=== PATIENT | male | born 1990 | race African-American/Black ===

== ENCOUNTER 2017-02-13 13:18 | Emergency (ER) | payer SELFPAY ==
[2017-02-13 13:51] VITALS: BP 115/59
--- NOTE | 2017-02-13 13:58 | ER Document Report ---
ED Medical Screen (RME) - General Stated Complaint: POSSIBLE BLOOD IN STOOL Time seen by provider: 13:56 Mode of Arrival: Ambulatory Information source: Patient Notes: 26-year-old male presents to ED for swollen lymph nodes to his right axilla and groin for 3 days. He states he's also had some blood with his stools off and on for 2 months with intermittent diarrhea. States he's had overall feeling in his stomach like he hasn't eaten for about 2 months. Denies nausea or vomiting. States he has not been to a doctor in this time.. I have greeted and performed a rapid initial assessment of this patient. A comprehensive ED assessment and evaluation of the patient, analysis of test results and completion of medical decision making process will be conducted by an additional ED providers. TRAVEL OUTSIDE OF THE [place] IN LAST 30 DAYS: No - Related Data Allergies/Adverse Reactions: No Known Allergies Allergy (Verified 10/14/16 08:40) Past Medical History - Immunizations Hx Diphtheria, Pertussis, Tetanus Vaccination: Yes - unknown Physical Exam - Vital signs Vitals: Temp Pulse Resp BP Pulse Ox 98.3 F 56 L 14 115/59 L 97 02/13/17 13:50 02/13/17 13:50 02/13/17 13:50 02/13/17 13:50 02/13/17 13:50 Course - Vital Signs Vital signs: Temp Pulse Resp BP Pulse Ox 98.3 F 56 L 14 115/59 L 97 02/13/17 13:50 02/13/17 13:50 02/13/17 13:50 02/13/17 13:50 02/13/17 13:50
== END 2017-02-13 16:40 | disposition left against medical advice (07) ==
LOC: ER 13:18
DX: Z53.9 Procedure and treatment not carried out, unspecified reason (principal); R19.5 Other fecal abnormalities; R59.9 Enlarged lymph nodes, unspecified
CPT/HCPCS: 99281

== ENCOUNTER 2017-05-12 18:57 | Emergency (ER) | payer SELFPAY ==
--- NOTE | 2017-05-12 23:25 | ER Document Report ---
ED General - General Chief Complaint: Bloody Stools Stated Complaint: POSSIBLE BLOODY STOOL Time Seen by Provider: 05/12/17 22:57 Notes: Patient is a 26-year-old male without past medical history who presents with several months of constipation, intermittent rectal bleeding with hard stools and intermittent abdominal discomfort. Denies any abdominal pain at the time of my assessment states that he intermittently has a diffuse, mild, abdominal cramping. Nothing improves or worsens the symptoms. He has not tried anything to assist with constipation. Denies any significant rectal bleeding. No hematemesis. He has not seen his primary care doctor regarding today's concerns. No history of bleeding diatheses. TRAVEL OUTSIDE OF THE [place] IN LAST 30 DAYS: No - Related Data Allergies/Adverse Reactions: No Known Allergies Allergy (Verified 02/13/17 13:58) Past Medical History - General Information source: Patient - Social History Smoking Status: Never Smoker Chew tobacco use (# tins/day): No Frequency of alcohol use: None Drug Abuse: None Lives with: Spouse/Significant other Family History: Reviewed & Not Pertinent Patient has suicidal ideation: No Patient has homicidal ideation: No Renal/ Medical History: Denies: Hx Peritoneal Dialysis Surgical Hx: Negative - Immunizations Hx Diphtheria, Pertussis, Tetanus Vaccination: Yes - unknown Review of Systems - Review of Systems Notes: Constitutional: Negative for fever. HENT: Negative for sore throat. Eyes: Negative for visual changes. Cardiovascular: Negative for chest pain. Respiratory: Negative for shortness of breath. Gastrointestinal: Positive for abdominal pain and constipation Genitourinary: Negative for dysuria. Musculoskeletal: Negative for back pain. Skin: Negative for rash. Neurological: Negative for headaches, weakness or numbness. 10 point ROS negative except as marked above and in HPI. Physical Exam - Vital signs Vitals: Temp Pulse Resp BP Pulse Ox 98.3 F 71 16 126/66 H 99 05/12/17 20:11 05/12/17 20:11 05/12/17 20:11 05/12/17 20:11 05/12/17 20:11 Interpretation: Normal Notes: PHYSICAL EXAMINATION: GENERAL: Well-appearing, well-nourished and in no acute distress. HEAD: Atraumatic, normocephalic. EYES: Pupils equal round and reactive to light, extraocular movements intact, sclera anicteric, conjunctiva are normal. ENT: nares patent, oropharynx clear without exudates. Moist mucous membranes. NECK: Normal range of motion, supple without lymphadenopathy LUNGS: Breath sounds clear to auscultation bilaterally and equal. No wheezes rales or rhonchi. HEART: Regular rate and rhythm without murmurs ABDOMEN: Soft, nontender, normoactive bowel sounds. No guarding, no rebound. No masses appreciated. EXTREMITIES: Normal range of motion, no pitting or edema. No cyanosis. NEUROLOGICAL: No focal neurological deficits. Moves all extremities spontaneously and on command. PSYCH: Normal mood, normal affect. SKIN: Warm, Dry, normal turgor, no rashes or lesions noted. Course - Re-evaluation Re-evalutation: 05/12/17 23:21 Patient presents with concerns of constipation, intermittent abdominal pain and blood around his stools. He denies any abdominal pain at the time of my assessment. Vitals are within normal limits. No focal abdominal tenderness on examination. Patient denies any significant amount of bleeding and notes that the symptoms have been present for the past 2 months. States he is having a regular bowel movements going approximately 2-3 times a week and he does have to strain extensively to have a bowel movement, consistent with a history of constipation. Patient did decline a rectal examination. I did mention to the patient that this would allow me to assess for anal fissures, a rectal mass, and for internal and external hemorrhoids. He declined stating the only concern that he had and the reason that he came to the emergency department denies that he was worried about the possibility of colon cancer. He has no family history of colon cancer on either his mother or father's side. I reviewed with the patient the colon cancer screening guidelines for reassurance and he states that this was quite helpful. He has not had any weight loss, is otherwise extremely well in appearance and I do not suspect an acute colonic cancer at this time. I recommended MiraLAX therapy at home. At this time will discharge with return precautions and follow-up recommendations. Verbal discharge instructions given a the bedside and opportunity for questions given. Medication warnings reviewed. Patient is in agreement with this plan and has verbalized understanding of return precautions and the need for primary care follow-up in the next 24-72 hours. - Vital Signs Vital signs: Temp Pulse Resp BP Pulse Ox 98 F 55 L 18 119/62 97 06/17/17 00:53 05/13/17 00:53 05/13/17 00:53 05/13/17 00:53 05/13/17 00:53 Discharge - Discharge Clinical Impression: Rectal bleeding Constipation Qualifiers: Constipation type: unspecified constipation type Qualified Code(s): K59.00 - Constipation, unspecified Condition: Good Disposition: HOME, SELF-CARE Additional Instructions: For your constipation take 1-2 capfuls of MiraLAX every day until your stools the consistency of soft serve ice cream. You can also consider getting a squatty potty to help with having BMs. Return if you begin to have large quantities of blood in your stool, worsening or persistent abdominal pain, vomiting, fever, or any other symptoms that are worrisome to you.
[2017-05-12] MEDS ORDERED: POLYETHYLENE GLYCOL 3350 POWDER 17 GM/1 PACKET PO ONE (23:26)
[2017-05-13 00:56] VITALS: BP 119/62
== END 2017-05-12 23:30 | disposition home or self-care (01) ==
LOC: ER 18:57
DX: K62.5 Hemorrhage of anus and rectum (principal); K59.00 Constipation, unspecified
CPT/HCPCS: 99283

== ENCOUNTER 2017-07-05 19:54 | Emergency (ER) | payer SELFPAY ==
--- NOTE | 2017-07-05 20:56 | ER Document Report ---
ED GI/ - General Chief Complaint: STD Exposure Stated Complaint: STD CHECK Time Seen by Provider: 07/05/17 20:45 Mode of Arrival: Ambulatory Information source: Patient Notes: 27-year-old male presents to ED for complaint of a sky green discharge from his penis. He denies any pain discomfort with urination but states he has been having unprotected sex. TRAVEL OUTSIDE OF THE [place] IN LAST 30 DAYS: No - HPI Patient complains to provider of: Other - penile discharge Onset: Other - "several days" Timing/Duration: Persistent Quality of pain: No pain Severity in ED: None Pain Level: Denies Location: Other - penile discharge Sexual history: Unprotected intercourse Associated symptoms: Penile discharge Exacerbated by: Denies Relieved by: Denies Similar symptoms previously: No Recently seen / treated by doctor: No - Related Data Allergies/Adverse Reactions: No Known Allergies Allergy (Verified 07/05/17 20:06) Home Medications: Current Home Medications No Home Medications 07/05/17 [History] Past Medical History - General Information source: Patient - Social History Smoking Status: Current Every Day Smoker Cigarette use (# per day): Yes - 3 cig a day Chew tobacco use (# tins/day): No Smoking Education Provided: Yes - less than 2 min Frequency of alcohol use: Social Drug Abuse: Marijuana Lives with: Alone Family History: CVA Patient has suicidal ideation: No Patient has homicidal ideation: No - Past Medical History Cardiac Medical History: Reports: None Pulmonary Medical History: Reports: None EENT Medical History: Reports: None Neurological Medical History: Reports: None Endocrine Medical History: Reports: None Renal/ Medical History: Reports: None Malignancy Medical History: Reports None GI Medical History: Reports: None Musculoskeltal Medical History: Reports None Skin Medical History: Reports None Psychiatric Medical History: Reports: None Traumatic Medical History: Reports: None Infectious Medical History: Reports: None Surgical Hx: Negative Past Surgical History: Reports: None - Immunizations Hx Diphtheria, Pertussis, Tetanus Vaccination: Yes - unknown Review of Systems - Review of Systems Constitutional: No symptoms reported EENT: No symptoms reported Cardiovascular: No symptoms reported Respiratory: No symptoms reported Gastrointestinal: No symptoms reported Genitourinary: No symptoms reported Male Genitourinary: Penile discharge Musculoskeletal: No symptoms reported Skin: No symptoms reported Hematologic/Lymphatic: No symptoms reported Neurological/Psychological: No symptoms reported -: Yes All other systems reviewed and negative Physical Exam - Vital signs Vitals: Temp Pulse Resp BP Pulse Ox 98.4 F 80 15 134/86 H 96 07/05/17 20:06 07/05/17 20:06 07/05/17 20:06 07/05/17 20:06 07/05/17 20:06 Interpretation: Normal - General General appearance: Appears well, Alert - HEENT Head: Normocephalic, Atraumatic Eyes: Normal Pupils: PERRL - Respiratory Respiratory status: No respiratory distress Chest status: Nontender Breath sounds: Normal Chest palpation: Normal - Cardiovascular Rhythm: Regular Heart sounds: Normal auscultation Murmur: No - Abdominal Inspection: Normal Distension: No distension Bowel sounds: Normal Tenderness: Nontender Organomegaly: No organomegaly - Genitourinary Tenderness: Nontender Notes: green penile discharge - Back Back: Normal, Nontender - Extremities General upper extremity: Normal inspection, Nontender, Normal color, Normal ROM , Normal temperature General lower extremity: Normal inspection, Nontender, Normal color, Normal ROM , Normal temperature, Normal weight bearing. No: Yuliet's sign - Neurological Neuro grossly intact: Yes Cognition: Normal Orientation: AAOx4 [place] Coma Scale Eye Opening: Spontaneous [place] Coma Scale Verbal: Oriented [place] Coma Scale Motor: Obeys Commands [place] Coma Scale Total: 15 Speech: Normal Motor strength normal: LUE, RUE, LLE, RLE Sensory: Normal - Psychological Associated symptoms: Normal affect, Normal mood - Skin Skin Temperature: Warm Skin Moisture: Dry Skin Color: Normal Course - Re-evaluation Re-evalutation: 07/05/17 21:46 Patient treated with azithromycin and Rocephin and discharged home to call later tonight and ask for the results of his GC and chlamydia. Patient given instructions on safe sex. - Vital Signs Vital signs: Temp Pulse Resp BP Pulse Ox 98.4 F 80 15 134/86 H 96 07/05/17 20:06 07/05/17 20:06 07/05/17 20:06 07/05/17 20:06 07/05/17 20:06 - Laboratory Laboratory results interpreted by me: 07/05/17 20:35 Urine Ascorbic Acid 20 H Discharge - Discharge Clinical Impression: Urethritis Condition: Stable Disposition: HOME, SELF-CARE Instructions: Family Physicians / Practices Additional Instructions: Urethritis You have urethritis, an infection of the urethra. The usual symptoms are pain on urination and discharge. The infection is often caused by gonorrhea or chlamydia. Treatment is antibiotics. In addition, any sexual contacts should be evaluated by a physician as soon as possible. As this infection can be transmitted sexually, refrain from sexual activity until the infection is confirmed as healed by your physician. If gonorrhea or chlamydia is found on culture, the health department must be notified. Call the doctor at once if you develop difficulty passing your urine, high fever, rash, joint swelling, or other new symptoms. Rocephin You have been given an injection of an antibiotic called Rocephin ( ceftriaxone). Sometimes the injection must be combined with antibiotic pills. For some infections, such as an uncomplicated ear infection, Rocephin provides all the antibiotic that's needed. The antibiotic will be in your body for about two days. For serious infections, we usually repeat doses of Rocephin daily. Side effects are very unusual following a shot. Women may develop vaginal yeast infections, and babies can get yeast (thrush) in the mouth following the use of antibiotics. Contact your physician if you have symptoms with this medication. Allergy to this antibiotic can result in hives, wheezing, faintness, or itching. If symptoms of allergy occur, call the doctor at once. Azithromycin Azithromycin (Zithromax) is a broad spectrum antibiotic in the same class as erythromycin. It can treat a variety of bacterial infections, but is most frequently used for respiratory infections. Azithromycin is extremely long-lasting. It accumulates in body tissues and continues to kill bacteria for many days. In order to improve absorption, Azithromycin should be taken at least one hour before or two hours after a meal. It does not have the same strong tendency to upset the stomach as erythromycin and is usually very well tolerated. Patients who have had a rash or other true allergic reactions to erythromycin should not take this medication. Call if you develop gastrointestinal distress, severe diarrhea, rash, hives, itching, or shortness of breath. Call [phone] and speak with Korey for the results of your gonorrhea and chlamydia test. FOLLOW-UP CARE: If you have been referred to a physician for follow-up care, call the physician s office for an appointment as you were instructed or within the next two days. If you experience worsening or a significant change in your symptoms, notify the physician immediately or return to the Emergency Department at any time for re-evaluation. Forms: Elevated Blood Pressure, Smoking Cessation Education
[2017-07-05 21:15] LABS: APPEARANCE,URINE CLEAR; BILIRUBIN,URINE NEGATIVE (NEGATIVE); GLUCOSE, URINE NEGATIVE (NEGATIVE); KETONES,URINE NEGATIVE (NEGATIVE); LEUKOCYTE ESTERASE,URINE NEGATIVE (NEGATIVE); NITRITE,URINE NEGATIVE (NEGATIVE); PROTEIN,URINE NEGATIVE (NEGATIVE); URINE SPECIFIC GRAVITY 1.016; UROBILINOGEN,URINE NEGATIVE mg/dL (<2.0)
[2017-07-05] MEDS ORDERED: CEFTRIAXONE INJ 250 MG VIAL IM ONE (21:19)
[2017-07-05] MEDS ORDERED: AZITHROMYCIN 250 MG TABLET PO ONE (21:19)
[2017-07-05] MEDS ORDERED: LIDOCAINE 1% INJ-PF (10 MG/ML) 30 ML SDV INJ ONE (21:19)
[2017-07-05 22:24] LABS: CHLAM PCR NOT DETECTED (NOT DETECT)
[2017-07-05 23:18] VITALS: BP 125/69
== END 2017-07-05 22:15 | disposition home or self-care (01) ==
LOC: ER 19:54
DX: A54.01 Gonococcal cystitis and urethritis, unspecified (principal); F17.210 Nicotine dependence, cigarettes, uncomplicated; Z71.6 Tobacco abuse counseling
CPT/HCPCS: 99283; 96372; 81001; 87491; 87591; J3490; J0696

== ENCOUNTER 2019-06-18 22:59 | Emergency (ER) | payer SELFPAY ==
--- NOTE | 2019-06-18 23:53 | ER Document Report ---
ED General - General Chief Complaint: Swallowed Bleach Stated Complaint: POSSIBLE BLEACH POISONING Time Seen by Provider: 06/18/19 23:49 Notes: Patient is a 29 year old male that comes to the Emergency Department for chief complaint of accidental ingestion of bleach. He states there was a jug that was full of water and added bleach for cleaning it out, he didn't realize and he poured himself a drink of the mixed water, and he took a swallow. He states he threw up twice and his throat is burning. He denies any symptoms otherwise. He denies any other complaints. He denies any daily medications or diagnosed medical problems. TRAVEL OUTSIDE OF THE [place] IN LAST 30 DAYS: No - Related Data Allergies/Adverse Reactions: shrimp Allergy (Verified 06/18/19 23:06) Past Medical History - General Information source: Patient - Social History Smoking Status: Never Smoker Drug Abuse: None Lives with: Family Family History: CVA Renal/ Medical History: Denies: Hx Peritoneal Dialysis Surgical Hx: Negative - Immunizations Immunizations up to date: Yes Hx Diphtheria, Pertussis, Tetanus Vaccination: Yes - unknown Review of Systems - Review of Systems Constitutional: No symptoms reported EENT: See HPI Cardiovascular: No symptoms reported Respiratory: No symptoms reported Gastrointestinal: See HPI Genitourinary: No symptoms reported Male Genitourinary: No symptoms reported Musculoskeletal: No symptoms reported Skin: No symptoms reported Hematologic/Lymphatic: No symptoms reported Neurological/Psychological: No symptoms reported Physical Exam - Vital signs Vitals: Temp Pulse Resp BP Pulse Ox 98.2 F 69 12 143/80 H 97 06/18/19 23:13 06/18/19 23:13 06/18/19 23:13 06/18/19 23:13 06/18/19 23:13 - Notes Notes: GENERAL: Alert, interacts well. No acute distress. HEAD: Normocephalic, atraumatic. EYES: Pupils equal, round, and reactive to light. Extraocular movements intact. ENT: Oral mucosa moist, tongue midline. Oropharynx unremarkable. No swelling or abnormal erythema noted. Airway patent. Nares patent, no nasal septal hematoma, TM's intact. NECK: Full range of motion. Supple. Trachea midline. LUNGS: Clear to auscultation bilaterally, no wheezes, rales, or rhonchi. No respiratory distress. HEART: Regular rate and rhythm. No murmur ABDOMEN: Soft, non-tender. Non-distended. GENITOURINARY: Deferred EXTREMITIES: Moves all 4 extremities spontaneously. No edema, normal radial and dorsalis pedis pulses bilaterally. No cyanosis. BACK: no cervical, thoracic, lumbar midline tenderness. No saddle anesthesia, normal distal neurovascular exam. Moves all extremities in full range of motion. NEUROLOGICAL: Alert and oriented x3. Normal speech. Cranial nerves II through XII grossly intact. PSYCH: Normal affect, normal mood. SKIN: Warm, dry, normal turgor. No rashes or lesions noted. Course - Re-evaluation Re-evalutation: 06/18/19 23:58 Spoke with Silvia at [employer] control. Patient only ingested 1 swallow, 3 capsules of bleach were placed in a drug of water, patient did have vomiting and throat burning but no other symptoms. She states the most concerning symptoms develop over the course of 1 hour, however patient symptoms have almost completely res olved. She states patient is stable for discharge as long as he can tolerate p.o. She recommends he be given a p.o. trial was drinking fluids, if he maintains as well, does not have worsening symptoms, or does not vomit he can be safely discharged home. Patient drinks a cup of water. He was reevaluated within the next 20 minutes or so, symptoms have not progressed, he feels fine, he did not vomit. Patient states he drank a bottle of fluids before arrival. His incident happened almost 2 hours ago. Patient will be discharged home with follow-up and return precautions. He was given GI cocktail after discussion of options. Patient states understanding and agreement with plan. - Vital Signs Vital signs: Temp Pulse Resp BP Pulse Ox 98.2 F 62 18 136/72 H 98 06/19/19 00:30 06/19/19 00:30 06/19/19 00:30 06/19/19 00:30 06/19/19 00:30 Discharge - Discharge Clinical Impression: Ingestion of bleach Qualifiers: Encounter type: initial encounter Injury intent: accidental or unintentional Qualified Code(s): T54.91XA - Toxic effect of unspecified corrosive substance, accidental (unintentional), initial encounter Condition: Stable Disposition: HOME, SELF-CARE Additional Instructions: There does not appear to be any concerning abnormality or apparent injury from your ingestion. Follow-up with primary care. Return for any concerning symptoms including abdominal pain, chest pain, return vomiting, or any other concerning or worsening symptoms.
[2019-06-19] MEDS ORDERED: MAG HYDROX/AL HYDROX/SIMETH SUSP 30 ML UDCUP PO ONE (00:08)
[2019-06-19] MEDS ORDERED: METOCLOPRAMIDE HCL ORAL SOLN 10 MG/10 ML UDCUP PO ONE (00:08)
[2019-06-19] MEDS ORDERED: LIDOCAINE 2% VISCOUS SOLN 20 ML UDCUP PO ONE (00:08)
[2019-06-19 01:58] VITALS: BP 136/72
== END 2019-06-19 00:31 | disposition home or self-care (01) ==
LOC: ER 22:59
DX: T54.91XA Toxic effect of unspecified corrosive substance, accidental (unintentional), initial encounter (principal); R09.89 Other specified symptoms and signs involving the circulatory and respiratory systems; R11.10 Vomiting, unspecified; Z91.013 Allergy to seafood
CPT/HCPCS: 99283; J3490